=== PATIENT | male | born 1975 | race Two or more races ===

== ENCOUNTER → 2018-04-13 | Outpatient (CLI) | payer BC ==
--- NOTE | 2018-04-13 21:17 | CT ---
EXAMINATION TYPE: CT ChestAbdPelvis w con DATE OF EXAM: 04/13/2018 INDICATION: Rectal cancer; permanent colostomy COMPARISON: NONE CT DLP: 2111 mGycm CONTRAST: Performed with Oral Contrast and with IV Contrast, patient injected with 100 ml mL of Isovue 300. TECHNIQUE: Axial images at 5 mm thick sections. Reconstructed images in the coronal plane. Delayed images through the kidneys. FINDINGS: CT CHEST: Is a port on the right tip is in the superior vena cava. Portion of the thyroid visualized is normal. No suspicious lung nodules or focal infiltrates are present. No enlarged mediastinal or hilar adenopathy is evident. Couple small lymph nodes are in the pretrache al space and aortopulmonic window. These are not enlarged by CT criteria. There are scattered axillar y lymph nodes present bilaterally The ascending aorta diameter at the level of the main pulmonary artery is 3.1 cm. The main pulmonary artery diameter at the bifurcation is 2.[address] ABDOMEN: Liver: There is a 1.4 x 2.6 cm hypodense area at the tip of the right lobe of the liver. This has irr egular margins. This remains subtle on the delayed images. Additional workup is recommended. Metastat ic lesion is not excluded. Spleen: Normal Pancreas: Normal Adrenal glands: The adrenal glands are normal. Gallbladder: Normal Kidneys: No masses are evident. No hydronephrosis is present. No cysts are present. Delayed images were obtained through the kidneys, which remain unremarkable. Aorta: Normal Inferior vena cava: Normal. CT PELVIS: Loops of bowel within the abdomen and pelvis are normal. There are loops of bowel which are incom pletely distended or lack oral contrast limiting their evaluation. Fecal debris is scattered through the colon. There is a colostomy in the left lower quadrant. Presacral space is normal. There is likel y surgical suture at this level. Appendix: Normal as visualized. Urinary bladder: Normal. Genitourinary structures: Posterior slightly prominent. Some calcification is present. This is diffic ult to separate from the location of the rectum. Osseous structures: No suspicious lytic or sclerotic lesions. IMPRESSIONS: 1. 1.4 x 2.6 cm irregular hypodensity within the inferior right tip of the liver. Additional workup f or possible metastasis is recommended.
== END | disposition home or self-care (01) ==
LOC: RADPROMAIN 08:01
PROVIDERS: ATTEND Internal Medicine Hematology & Oncology
DX: C20 Malignant neoplasm of rectum (principal); R93.2 Abnormal findings on diagnostic imaging of liver and biliary tract
CPT/HCPCS: 71260; 74177; 36415; Q9967

== ENCOUNTER → 2018-04-21 | Outpatient (CLI) | payer BC ==
--- NOTE | 2018-04-24 09:42 | PE ---
EXAMINATION TYPE: PET CT fusion skull to thigh DATE OF EXAM: 04/21/2018 COMPARISON: CT chest, abdomen, and pelvis dated 04/13/2018 HISTORY: Rectal carcinoma diagnosed in 2012 treated with chemotherapy and radiation therapy. Last marci atment in 2012 for chemotherapy and 2011 for radiation therapy. Rectal surgery with permanent colosto my approximately 5 years ago. Subsequent treatment strategy (PS) a restaging or treatment monitoring. TECHNIQUE: Following the intravenous administration of 15.37 mCi of F-18 FDG, whole body images are performed from the skull base to the midthigh. Images are reviewed on the computer in the coronal, a xial, and sagittal planes. Reconstructed rotating images are created on independent workstation and reviewed on the computer. A localization and attenuation correction CT is performed in conjunction with the PET scan. SCAN: Subsequent per patient history, however first available at this institution. FINDINGS: Thoracic background: 1.6 Abdominal background: 2.75 SKULL BASE AND NECK: No suspicious hypermetabolic uptake. CHEST, MEDIASTINUM, AND HILAR REGION: No suspicious hypermetabolic uptake. ABDOMEN AND PELVIS: The known 1.4 x 2.6 cm hypoattenuated inferior right hepatic lobe lesion is poorl y defined in this noncontrast-enhanced examination. Uptake is similar to that of abdominal background with a maximum SUV of 2.8 (abdominal background 2.75). No suspicious hypermetabolic uptake. OSSEOUS STRUCTURES: No suspicious hypermetabolic uptake. Maximum SUV of 2.4 throughout the spine. OTHER CT: There is a right-sided Mediport terminating in the cavoatrial junction. Bibasilar subsegmen enrique dependent atelectasis is seen with more focal consolidative atelectasis within the lingula. This does not demonstrate hypermetabolic uptake (maximum SUV of 1.19). No mediastinal adenopathy is appreciated or axillary adenopathy. Heart is within normal limits of siz e. The previously identified hepatic lesion is more conspicuous on contrast enhanced exam. The unenha nced spleen, adrenal glands, pancreas, and kidneys are unremarkable morphology. No greater than 1 cm short axis lymph nodes are seen within the abdomen or pelvis. Left-sided diverting ostomy is again se en secondary to distal colonic resection. Probable bone islands present within the right femoral head , punctate and not hypermetabolic. Probable vertebral body hemangioma is present at L1. IMPRESSION: 1. The known 1.4 x 2.6 cm right hepatic lesion has FDG avidity similar to that of abdominal backgroun d. This remains suspicious for metastasis but could represent treated metastasis. Comparison with any prior outside imaging would be recommended to evaluate for interval growth. If there is further conc abhishek biopsy is recommended. 2. No other evidence of visceral metastatic disease, adenopathy, or suspicious osseous lesion.
== END | disposition home or self-care (01) ==
LOC: RADPETMAIN 14:32
PROVIDERS: ATTEND Internal Medicine Hematology & Oncology
DX: C20 Malignant neoplasm of rectum (principal); K76.89 Other specified diseases of liver
CPT/HCPCS: 78815; A9552

== ENCOUNTER → 2018-06-12 | Outpatient (CLI) | payer BC ==
--- NOTE | 2018-06-12 10:33 | CT ---
EXAMINATION TYPE: CT ChestAbdPelvis w con DATE OF EXAM: 06/12/2018 COMPARISON: 04/13/2018 enhancing 2017 HISTORY: 42-year-old male Colon CA. Last chemotherapy radiation 5 years ago. TECHNIQUE: Contiguous axial scanning of the chest, abdomen, and pelvis performed with IV Contrast, pa tient injected with 100 mL of Isovue 300. Delayed images through the kidneys were obtained. Coronal/s agittal reconstructions performed. CT DLP: 1802 mGycm Automated exposure control for dose reduction was used. FINDINGS: Chest: Heart normal size with trace pericardial fluid, unchanged from prior. Aorta normal caliber with bovine configuration to the aortic arch. Right anterior chest wall injection port with catheter tip at the lower SVC. Catheter is partially vi sualized and looped in the IJV. No thoracic lymphadenopathy. There is bilateral gynecomastia. Mild dependent atelectasis. Strandy atelectasis or scarring in the inferior lingula. No consolidation or pleural effusion. ABDOMEN: Redemonstrated hypodense lesion inferior right liver lobe. This measures 1.9 x 1.3 cm versus 2.0 x 1. 2 cm, previously, not significantly changed. No new focal liver lesion seen. Portal venous system is patent. No biliary ductal dilatation. Adrenal glands, kidneys, spleen, and pancreas appear within normal limits. Small fatty umbilical hernia. Incidental circumaortic left renal vein. No mesenteric or retroperitoneal lymphadenopathy. No dilated small bowel, free fluid, or free air. Or al contrast progressed to the upper ascending colon. There is mild to moderate stool burden. Left low er quadrant sigmoid colostomy is present. Pelvis: Bladder urine distended. Pelvic phleboliths. No abnormal fluid collection in the pelvis or pelvic lym phadenopathy. Bones: Stable bone island right femoral head. No osseous destructive process. Scattered endplate Schmorl's n odes. IMPRESSION: 1. DISTAL COLONIC RESECTION WITH LEFT LOWER QUADRANT SIGMOID COLOSTOMY. 2. A 1.9 X 1.3 CM HYPODENSE LESION INFERIOR RIGHT LIVER LOBE IS STABLE FROM 04/13/2018 WHERE IT MEASURE D 2.0 X 1.2 CM (REMEASURED BY THE CURRENT EMPLOYEE WELLNESS/FITNESS COORDINATOR TO ENSURE A DIRECT COMPARISON). COMPARISON TO A [place] AVAILABLE PRIOR OUTSIDE IMAGING MAY BE HELPFUL. 3. OTHERWISE, NO OTHER EVIDENCE FOR METASTATIC DISEASE.
== END | disposition home or self-care (01) ==
LOC: RADCTMAIN 08:15
PROVIDERS: ATTEND Internal Medicine Hematology & Oncology
DX: K76.89 Other specified diseases of liver (principal); C20 Malignant neoplasm of rectum; Z93.3 Colostomy status
CPT/HCPCS: 71260; 74177; Q9967

== ENCOUNTER 2018-10-23 12:28 | Day surgery (SDC) | payer BC ==
[~2018-10-23 12:28] MED LIST: LACTATED RINGERS 1,000 ML IV SCH; LIDOCAINE 1% 20 ML VIAL (10MG/ML) FOR IV START INTRADERMA PRN
[2018-10-23 13:26] VITALS: TEMP 97.3
[2018-10-23] MEDS ORDERED: PROPOFOL 10 MG/ML 20 ML VIAL IV ONE (14:06)
--- NOTE | 2018-10-23 14:38 | P.PCN ---
Date of Procedure: 10/23/18 Procedure(s) Performed: Procedure: Colonoscopy through ostomy site. Preoperative diagnosis: History of rectal cancer. Postoperative diagnosis: Exam through the colostomy to the cecum within normal limits. Preparation: HalfLytely prep. Sedation: Was provided by anesthesia. Brief clinical history: The patient is a 43-year-old male who was diagnosed with rectal cancer around 6 years ago and was at subsequently multiple surgeries as well as chemo therapy and radiation therapy and has been doing well. He is referred for this evaluation for screening because of his history. Procedure: With the patient in the supine position and after informed consent and adequate sedation, the ostomy area was inspected and it appeared healthy. There were couple diminutive mucosal growths at the ostomy area that probably represent regenerative tissue. The Olympus CFH 190L video colonoscope was then inserted in the ostomy in the usual fashion and advanced to the cecum. The preparation was less than ideal on the right side and cecum and I spent some time washing and suctioning. The mucosa appeared healthy. No polyps or tumors were seen. The patient tolerated the procedure well. Plan: The patient was reassured. I recommended repeat exam in around 2 years. He'll discuss that with you.
[2018-10-23 14:42] VITALS: RESP 16
[2018-10-23 15:04] VITALS: BP 130/85; PULSE 63
== END 2018-10-23 15:19 | disposition home or self-care (01) ==
LOC: EDSEX → ORWHC2ENDO 12:28 → MERGE 13:30 → ORWHC2ENDO 15:19
DX: Z12.11 Encounter for screening for malignant neoplasm of colon (principal); Z85.048 Personal history of other malignant neoplasm of rectum, rectosigmoid junction, and anus; Z92.21 Personal history of antineoplastic chemotherapy; Z92.3 Personal history of irradiation; Z91.041 Radiographic dye allergy status; Z90.49 Acquired absence of other specified parts of digestive tract
CPT/HCPCS: 44388; J2704; 44389

== ENCOUNTER 2020-05-18 07:51 | Day surgery (SDC) | payer BC ==
[2020-05-15 10:02] VITALS: BMI 29.8
[~2020-05-18 07:51] MED LIST changes: +LIDOCAINE 1% (10MG/ML) FOR IV START INTRADERMA PRN; -LIDOCAINE 1% 20 ML VIAL (10MG/ML) FOR IV START INTRADERMA PRN
[2020-05-18 08:32] VITALS: TEMP 96.9
[2020-05-18] MEDS ORDERED: fentaNYL (PF) 50 MCG/ML 2 ML AMP ONE (08:45)
[2020-05-18] MEDS ORDERED: PROPOFOL 10 MG/ML 20 ML VIAL IV ONE (08:45)
[2020-05-18] MEDS ORDERED: MIDAZOLAM 2 MG/2 ML VIAL ONE (08:45)
--- NOTE | 2020-05-18 09:17 | P.PCN ---
Date of Procedure: 05/18/20 Description of Procedure: BRIEF HISTORY: Patient is a 44-year-old male with a medical history significant for rectal cancer approximately 7 years ago requiring surgical intervention as well as chemotherapy and radiation therapy who presents for outpatient colonoscopy in his history of colon cancer. PROCEDURE PERFORMED: Colonoscopy through ostomy. PREOPERATIVE DIAGNOSIS: History of rectal/colon cancer, last colonoscopy in 2018. ESTIMATED BLOOD LOSS: Minimal. IV sedation per Anesthesia. PROCEDURE: After informed consent was obtained, the patient, was brought into the endoscopy unit. IV sedation was administered by Anesthesia under continuous monitoring. Initially the Olympus CF-190 flexible video colonoscope was then inserted into the patients ostomy, gradually advanced into the cecum without any difficulty. Careful examination was performed as the scope was gradually being withdrawn. Ileocecal valve and the appendiceal orifice were visualized and appeared normal. The terminal ileum was intubated and appeared normal. Prep was excellent. Mucosa of the cecum, ascending colon, transverse colon, descending colon, and sigmoid colon appeared normal. The patient tolerated the procedure well. IMPRESSION: Normal-appearing colon from sigmoid to cecum, with normal-appearing terminal ileum. RECOMMENDATIONS: Findings of this examination were discussed with the patient. Okay to resume diet. Okay to resume medications. Would recommend repeat colonoscopy in 3 years or sooner if any signs or symptoms which warrant further evaluation developed given history of rectal cancer/colon cancer.
[2020-05-18 09:34] VITALS: BP 107/59; PULSE 58; RESP 18
== END 2020-05-18 09:54 | disposition home or self-care (01) ==
LOC: ORWHC2ENDO 07:51
PROVIDERS: ATTEND Internal Medicine
DX: Z12.11 Encounter for screening for malignant neoplasm of colon (principal); Z85.048 Personal history of other malignant neoplasm of rectum, rectosigmoid junction, and anus; Z85.038 Personal history of other malignant neoplasm of large intestine; Z93.3 Colostomy status; E78.5 Hyperlipidemia, unspecified; Z92.21 Personal history of antineoplastic chemotherapy; Z92.3 Personal history of irradiation; Z79.890 Hormone replacement therapy; Z79.899 Other long term (current) drug therapy; Z79.1 Long term (current) use of non-steroidal anti-inflammatories (NSAID); Z79.891 Long term (current) use of opiate analgesic; Z90.89 Acquired absence of other organs; Z90.49 Acquired absence of other specified parts of digestive tract
CPT/HCPCS: 44388; J2250; J3010; J2704